=== PATIENT | male | born 2000 | race Caucasian/White ===

== ENCOUNTER 2023-01-10 22:25 | Emergency (ER) | payer SELFPAY ==
--- NOTE | 2023-01-10 20:50 | RAD_ITS ---
INDICATION: twisted ankle EXAMINATION/TECHNIQUE: X-RAY - RIGHT XR Ankle Min 3 Views COMPARISON: None. FINDINGS: SOFT TISSUES: Mild lateral ankle soft tissue swelling. BONES/JOINTS: No fracture or dislocation. No significant degenerative changes. No erosive changes. RAD/Ankle min 3 Views IMPRESSION: No fracture or dislocation. Electronically Signed: Calvin Tesafye DO at 23:19 EST ,
[2023-01-10 22:26] VITALS: BP 136/82; PULSE 82; RESP 18; TEMP 36.2; O2SAT 97; BMI 40.1
--- NOTE | 2023-01-10 22:46 | ED.VIS.LOWEX ---
HPI History of Present Illness HPI Narrative: Stepped in a hole and twisted his right ankle this morning. Complaining of pain. Prior sprain no prior surgery or fracture. Chief Complaint: Lower Extremity Injury Informant: patient Occured/Mechanism Mechanism/Context: Yes injury Onset/Context/Timing Onset: Today and Hours Context: Sudden Onset Timing: Continuous Quality of Pain: Sharp Current Severity: Mild Maximum Severity: Moderate Associated Symptoms Associated Symptoms: Negative for Parasthesia, Weakness or Loss of Funtion Narrative Narrative: 22-year-old male went to help his girlfriend today who hurt her back and he stepped in a hole and twisted his right ankle. Prior sprain but no prior fracture or ankle or leg surgery. No other injuries. Prior similar symptoms: Yes Recent Illness/Hospitalization: No PFSH PFSH Medical History no medical history no medical history Allergy/AdvReac Type Severity Reaction Status Date / Time No Known Allergies Allergy Verified 01/10/23 22:26 ROS ROS ED ROS Narrative Denies recent illness. Review of Systems ROS Unobtainable: Denies due to encephalopathy Constitutional Constitutional ED: Denies chills or fever(s) Eyes Eyes: Denies blurry vision ENT ENT ED: Denies ear pain or rhinorrhea Cardiovascular Cardiovascular: Denies chest pain or palpitations Respiratory/Chest Respiratory/Chest: Denies cough or dyspnea Gastrointestinal Gastrointestinal: Denies abdominal pain, constipation or diarrhea Genitourinary Genitourinary ED: Denies dysuria or hematuria Musculoskeletal Musculoskeletal: Denies arthralgias or back pain Integumentary Denies abscess or Abrasions Neurologic Neurologic: Denies headache(s) Psychiatric Psychiatric: Denies anxiety or depression Endocrine Endocrinology: Denies polydipsia Hematologic/Lymphatic Hematologic/Lymphatic: Denies easy bleeding Allergic/Immunologic Allergic/Immunologic ED: Denies mouth swelling EXAM Physical Exam Narrative Exam Narrative: 22-year-old male vital signs stable afebrile. HEENT exam normal. Lungs clear. Heart regular rhythm. Chest wall nontender. Abdomen soft nontender. Back nontender. Moving all 4 extremities. Neurovascularly intact. Normal range of motion. Right hip and knee are nontender normal range of motion. Right ankle tender primarily at the lateral malleolus. Mild swelling. Medial malleolus no deformity or swelling. Dorsi and plantarflexion intact. Achilles tendon intact. DP pulse intact. Able to wiggle his toes. Normal touch sensation. No foot tenderness or bony deformity. Otherwise exam unremarkable. Const Vital Signs: 01/10/23 22:26 Temperature 97.1 F L Temperature Source Temporal Pulse Rate 82 Respiratory Rate 18 Blood Pressure 136/82 H Blood Pressure Mean 100 Pulse Ox 97 Oxygen Delivery Method Room Air Positive well nourished and well developed; Negative for cachectic, contractures or unkempt General Appearance ED: well developed and NAD; Negative for unkempt, cachectic or contractures Nutritional Appearance: Negative for cachectic HEENT Reports moist mucous membranes normocephalic and atraumatic; Negative for trauma or tenderness Eyes PERRL General Eye ED: Negative for other Neck full ROM and supple Thyroid: Negative for tender Lymph Lymphatic: Negative for other Chest Wall inspection of chest normal and palpation of chest normal Chest: Negative for other Resp normal respiratory effort, no retractions and clear to auscultation bilaterally Effort and Inspection: Negative for pain with movement Auscultation: Negative for rales, rhonchi or wheezes Cardio regular rate, regular rhythm, S1 normal heart sound, S2 normal heart sound and no murmurs Rate: Negative for bradycardia or tachycardic Rhythm: Negative for abnormal rhythm Bruits: Negative for other GI non-tender, non-distended and no masses Inspection: Negative for abdominal distention Auscultation: normoactive bowel sounds Palpation: soft; Negative for tender or guarding Bladder / Kidney Exam: No other Back/Spine no CVA tenderness General Back: Negative for CVA tenderness Cervical Spine: Negative for cervical spine tenderness Thoracic Spine / Upper Back: Negative for thoracic spinal tenderness Lumbar Spine / Lower Back: Negative for lumbar spinal tenderness Extremity normal to inspection and full ROM Extremity Narrative: Right ankle. Tender lateral malleolus. Mild swelling. Normal dorsi plantarflexion. Normal Achilles tendon. No bony deformity. Foot nontender. General Extremety ED: Yes edema; Negative for cyanosis General Extremity: edema; Negative for cyanosis Neuro oriented x3, CN's II-XII intact bilaterally, moves all extremities and no sensory deficits noted Sensorium / Orientation: alert, oriented to person, oriented to place and oriented to time; Negative for orientation impaired, confused, lethargic or stuporous Motor Exam: strength 5/5 throughout Psych mental status grossly normal Appearance: Negative for unkempt Speech: No other Mood & Affect: Negative for anxious Skin no wounds Lesions: no lesions Rashes: no rashes Trauma: Negative for abrasion or laceration MDM MDM MDM Narrative Medical decision making narrative: 22-year-old twisted his right ankle complaining of pain. X-ray being obtained. He already took anti-inflammatories prior to arrival. Repeat exam at 11:15 PM unchanged. Patient I went over his x-ray results. Treated as an ankle sprain. Ice and elevate. Motrin Tylenol. Follow-up if not improving. I will discuss with the patient if he needs crutches or an Aircast. Radiography Diagnostic Testing: Right ankle x-ray, 3 views, interpreted by myself shows no acute abnormality. No fracture. No dislocation. Discharge Plan Triage Chief Complaint: Lower Extremity Injury ED Provider: Elieser Carr Dx/Rx/DC Orders Primary Care Provider: Care Physician,No Primary Referrals: Care Physician,No Primary [Primary Care Provider] -
== END 2023-01-10 23:34 | disposition home or self-care (01) ==
PROVIDERS: Emergency Provider Emergency Medicine; Visit Provider Emergency Medicine
DX: S93.401A Sprain of unspecified ligament of right ankle, initial encounter (principal); X58.XXXA Exposure to other specified factors, initial encounter; Y93.89 Activity, other specified
CPT/HCPCS: 73610; 99283